=== PATIENT | male | born 2000 | race Caucasian/White ===

== ENCOUNTER 2023-08-04 17:31 | Emergency (ER) | payer OTHER ==
[~2023-08-04] VITALS: Ht 167.6 cm; Wt 95.3 kg
[2023-08-04 17:47] VITALS: BP 122/69; PULSE 74; RESP 14; TEMP 98.1; O2SAT 99
[2023-08-04] MEDS ORDERED: cefTRIAXone 1,000 MG in LIDOCAINE MPF 1% 2.1 ML IM ONE (19:15)
[2023-08-04] MEDS ORDERED: cefTRIAXone 1,000 MG VIAL ONE (19:24)
[2023-08-04] MEDS ORDERED: LIDOCAINE MPF 1% 5 ML ONE (19:25)
[2023-08-04] MEDS ORDERED: AMOX1TAB8 PO (19:40)
[2023-08-04 19:43] VITALS: BP 122/69; PULSE 82; RESP 17; TEMP 98; O2SAT 98
== END 2023-08-04 19:43 | disposition home or self-care (01) ==
LOC: MED 18:10
DX: S01.432A Puncture wound without foreign body of left cheek and temporomandibular area, initial encounter (principal); W54.0XXA Bitten by dog, initial encounter; Y93.89 Activity, other specified; Y92.89 Other specified places as the place of occurrence of the external cause; Y99.8 Other external cause status
CPT/HCPCS: 96372; 99283; J0696; J2001